=== PATIENT | male | born 1960 | race Two or more races ===

== ENCOUNTER 2025-01-09 06:54 | Outpatient (CLI) | payer OTHER ==
[~2025-01-09] VITALS: Ht 170.2 cm; Wt 113.4 kg
[2025-01-09] MEDS: REGADENOSON 0.4 MG/5 ML SYRG IV ONE ×2 (08:59)
--- NOTE | 2025-01-13 06:41 | DVHSR ---
APPROVED REPORT Exam: Nuclear Stress Test Indication: CHF BMI: 0 Stress Test Details Stress Test: Pharmacologic stress testing performed using 0.4 mg of regadenoson per 5 mL given IV over 10 seconds. HR Resting HR: 85 bpm Max Heart Rate (APMHR): 155.730680 bpm Max HR Achieved: 100 bpm Target HR (85% APMHR): 131.194002 bpm % of APMHR: 64.52 Recovery HR: 90 bpm BP Resting BP: 145/74 mmHg Recovery BP: 137/66 mmHg ECG Resting ECG: Sinus Rhythm Clinical Reason for Termination: Completed protocol Nurse Comments Recieved pt. from [facility]. A/Ox4 on RA. Connected to surveillance monitor, VS stable. PIV flushes well. Reviewed POC. Pt. verbalized understanding of procedure including risks and side effects, agrees for stress testing. Lexiscan stress test performed per protocol. [employer] administered Cardiolite. Pt. tolerated well. Pt. stable, no change on exam. VS returned to baseline. Transferred to [facility] via wheelchair w/ tech. Stress ECG Conclusion lvef 48% mild LV dysfunction inferior wall fsxed defect NM EXAM: Myocardial Perfusion REST/STRESS Imaging Protocol: Rest Tc-99m/Stress Tc-99m 1 day Resting Data Rest SPECT myocardial perfusion imaging was performed in supine position 45 minutes following the intravenous injection of 10.1 mCi of Tc-99m Sestamibi. Time of rest injection: 07:45 Date: 01/09/2025 Time of rest imagin:30 Date: 01/09/2025 Administration Route: IV Administration Site: Right Arm Pharmacologic Stress Pharmacologic stress test was performed by injecting Regadenoson 0.4 mg IV push followed by the intravenous injection of 30.2 mCi of Tc-99m Sestamibi. Time of stress injection: 09:02 Date: 01/09/2025 Time of stress imagin:02 Date: 01/09/2025 Administration Route: IV Administration Site: Right Arm Gated Stress SPECT was performed 60 minutes after stress injection. The images were gated to evaluate regional wall motion and calculate left ventricular ejection fraction. Stress only was performed in the Supine position. Nuclear Conclusion Nuclear Findings: negative for ischemia lvef 48% mild LV dysfunction inferior wall fsxed defect
== END 2025-01-09 17:00 | disposition home or self-care (01) ==
LOC: XYW 06:54
PROVIDERS: ATTEND Specialist
DX: I73.9 Peripheral vascular disease, unspecified (principal); I50.9 Heart failure, unspecified; J44.9 Chronic obstructive pulmonary disease, unspecified; I51.9 Heart disease, unspecified
CPT/HCPCS: 78452; 93017; A9500; J2785

== ENCOUNTER 2025-02-22 10:05 | Inpatient (IN) | payer OTHER, MEDICAID ==
[~2025-02-22] VITALS: Ht 170.2 cm; Wt 114.5 kg
[~2025-02-22 10:05] MED LIST: AMLO1TAB22 PO; ATOR20TA50 PO; CLON0.1T PO; DABI150C7 PO; DICL1GEL73 TOP; DOCU-94 PO; FAMO-12 PO; GAB100C PO; IPRA0.00 INH; LIDO1PAD55 TOP; [UNRECOGNIZED DRUG - CODE] PO
--- NOTE | 2025-02-22 11:17 | ED.PDOC ---
GI ASSESSMENT HPI Comments 64 y/o M, with PMHx of colon cancer presents to the ED for CC of abdominal pain. Patient states, he coughed x2days ago and now has a bulge to the left side of his abdomen. Patient reports, tenderness to the area upon palpation. Patient denies fever, chills, nausea, vomiting, diarrhea, constipation, or urinary symptoms. No other symptoms or modifying factors are present at this time. Chief Complaint: Abdominal Pain Time Seen by MD: 11:11 Reviewed Notes: Nurses Notes, Medications, Allergies Allergies: Coded Allergies: NO KNOWN ALLERGIES (Unverified , 01/09/25) Information Source: Patient Mode of Arrival: Ambulatory Timing: Days Duration: Since onset Prehospital treatment: None Vomitus: None Stool: Normal Severity: Moderate Recent: None Recent Hx of: None Pain Location: LUQ Modifying Factors: Nothing Associated sign and symptoms: Abdominal Pain Past Medical History PAST MEDICAL HISTORY: Cancer (COLON) Surgical History: Denies all surgeries Family History Family History: Unknown Social History Smoker: Non-Smoker Alcohol: Denies ETOH Use Drugs: Denies Drug Use Lives In: Home Constitutional: denies: chills, diaphoresis, fatigue, fever, malaise, sweats, weakness, others EENTM: denies: blurred vision, double vision, ear bleeding, ear discharge, ear drainage, ear pain, ear ringing, eye pain, eye redness, hearing loss, mouth pain, mouth swelling, nasal discharge, nose bleeding, nose congestion, nose pain, photophobia, tearing, throat pain, throat swelling, voice changes, others Respiratory: denies: cough, hemoptysis, orthopnea, SOB at rest, shortness of breath, SOB with excertion, stridor, wheezing, others Cardiovascular: denies: chest pain, dizzy spells, diaphoresis, Dyspnea on exertion, edema, irregular heart beat, left arm pain, lightheadedness, palpitations, PND, syncope, others Gastrointestinal: reports: abdominal pain; denies: abdomen distended, blood streaked bowels, constipated, diarrhea, dysphagia, difficulty swallowing, hematemesis, melena, nausea, poor appetite, poor fluid intake, rectal bleeding, rectal pain, vomiting, others Genitourinary: denies: burning, dysuria, flank pain, frequency, hematuria, incontinence, penile discharge, penile sore, pain, testicle pain, testicle swelling, urgency, others Neurological: denies: dizziness, fainting, headache, left sided numbness, left sided weakness, numbness, paresthesia, pre-existing deficit, right sided numbness, right sided weakness, seizure, speech problems, tingling, tremors, weakness, others Musculoskeletal: denies: back pain, gout, joint pain, joint swelling, muscle pain, muscle stiffness, neck pain, others Integumetry: denies: bruises, change in color, change in hair/nails, dryness, laceration, lesions, lumps, rash, wounds, others Allergic/Immunocompromised: denies: Difficulty Healing, Frequent Infections, Hives, Itching, others Hematologic/Lymphatic: denies: anemia, blood clots, easy bleeding, easy bruising, swollen glands, others Endocrine: denies: excessive hunger, excessive sweating, excessive thirst, excessive urination, flushing, intolerance to cold, intolerance to heat, unexplained weight gain, unexplained weight loss, others Psychiatric: denies: anxiety, bipolar disorder, depression, hopeless, panic disorder, schizophrenia, sleepless, suicidal, others All Other Systems: Reviewed and Negative Physical Exam General Appearance: No Apparent Distress, Normal HEENT: Normal ENT Inspection, Pharynx Normal Neck: Full Range of Motion, Non-Tender, Normal, Normal Inspection Respiratory: Chest Non-Tender, Lungs Clear, No Accessory Muscle Use, No Respira tory Distress, Normal Breath Sounds Cardiovascular: No Edema, No Murmur, No Gallop, Normal Peripheral Pulses, Regular Rate/Rhythm Breast Exam: Deferred Gastrointestinal: LUQ, No Organomegaly, No Pulsatile Mass, Normal Bowel Sounds, Soft, Tenderness (TTP), Other (HERNIA TO LEFT UPPER QUADRANTE ) Genitalia: Deferred Pelvic: Deferred Rectal: Deferred Extremities: No calf tenderness, Normal capillary refill, Normal inspection, Normal range of motion, Non-tender, No pedal edema Musculoskeletal : Apperance: Normal Neurologic: Alert, finish filer II-XII nml as Tested, No Motor Deficits, Normal Affect, Normal Mood, No Sensory Deficits Cerebellar Function: Normal Reflexes: Normal Skin: Dry, Normal Color, Warm Lymphatic: No Adenopathy Was a procedure done? Was a procedure done?: No GI differential Dx Differential Diagnosis: Hernia X-Ray, Labs, Meds, VS Vital Signs Date Time Temp Pulse Resp B/P (MAP) Pulse Ox O2 Delivery O2 Flow Rate FiO2 02/22/25 10:58 65 18 95 Nasal Cannula 3.0 02/22/25 10:58 98.2 68 18 144/76 (98) 95 98.2 02/22/25 10:08 97.4 92 16 177/79 94 97.4 Lab Test 02/22/25 11:30 Range/Units White Blood Count 4.4 4.4-10.8 10^3/uL Red Blood Count 4.54 4.5-5.90 10^6/uL Hemoglobin 13.9 13.5-17.5 g/dL Hematocrit 40.0 L 41.0-53.0 % Mean Corpuscular Volume 88.1 80.0-100.0 fL Mean Corpuscular Hemoglobin 30.5 28.0-32.0 pg Mean Corpuscular Hemoglobin Concent 34.7 32.0-36.0 g/dL Red Cell Distribution Width 15.7 H 11.8-14.3 % Platelet Count 123 L 140-450 10^3/uL Mean Platelet Volume 7.2 6.9-10.8 fL Neutrophils (%) (Auto) 69.0 37.0-80.0 % Lymphocytes (%) (Auto) 21.9 10.0-50.0 % Monocytes (%) (Auto) 7.9 0.0-12.0 % Eosinophils (%) (Auto) 0.8 0.0-7.0 % Basophils (%) (Auto) 0.4 0.0-2.0 % Neutrophils # (Auto) 3.0 1.6-8.6 10 ^3/uL Lymphocytes # (Auto) 1.0 0.4-5.4 10 ^3/uL Monocytes # (Auto) 0.3 0-1.3 10 ^3/uL Eosinophils # (Auto) 0 0-0.8 10 ^3/uL Basophils # (Auto) 0 0-0.2 10 ^3/uL Nucleated Red Blood Cells 0.1 % Sodium Level 145 136-145 mmol/L Potassium Level 4.0 3.5-5.1 mmol/L Chloride Level 105 98-107 mmol/L Carbon Dioxide Level 32 H 20-31 mmol/L Anion Gap 8 5-15 Blood Urea Nitrogen 13 9-23 mg/dL Creatinine 0.98 0.700-1.30 mg/dL Glomerular Filtration Rate Calc 86 >90 mL/min BUN/Creatinine Ratio 13.3 10.0-20.0 Serum Glucose 105 74-106 mg/dL Calcium Level 9.3 8.7-10.4 mg/dL Time of 1ST Reevaluation: 11:41 Reevaluation 1ST: Unchanged Patient Education/Counseling: Diagnosis, Treatment Family Education/Counseling: No Family Present SEPSIS Sepsis Screen Date sepsis recognized/suspect: Feb 22, 2025 Time Sepsis recognized/suspect: 101 Recent Procedure: No On Antibiotic Therapy: No Respiratory Rate >20: No Heart Rate >90: Yes Temp<36 C (96.8 F) or >38.3 C: No SBP <90 or MAP <65 mmHG: No New Acute Mental Status Change: No Is the patient on CPAP, BIPAP,: No Physician Orders Ct Ab Pel With Iv Con Only (02/22/25 10:47) Vital Signs Date Time Temp Pulse Resp B/P (MAP) Pulse Ox O2 Delivery O2 Flow Rate FiO2 02/22/25 10:58 65 18 95 Nasal Cannula 3.0 02/22/25 10:58 98.2 68 18 144/76 (98) 95 98.2 02/22/25 10:08 97.4 92 16 177/79 94 97.4 Laboratory Tests Test 02/22/25 11:30 White Blood Count 4.4 10^3/uL (4.4-10.8) Departure 1 Departure Time of Disposition: 13:59 (Patient presented with abdominal pain that was concerning for possible appendicits, gastritis, cholecystitis, colitis, gastroenteritis, sbo, or orther possible surgical emergency. Data: 1. I ordered and reviewed the result of at least 3 labs including a CBC, BMP, and Urinalysis. 2. I independently interpreted the following tests: CT Abdomen and Pelvis is concerning for very new spigelian hernia as well as chronic vascular insufficiency .Risk:This patient has a high risk of morbidity due to further diagnostic testing or treatment and may suffer from an acute abdominal process disorder. Workup reveals new spigelian hernia and intractable abdominal pain and patient should be admitted for further workup. and possible expert consultation. ) Impression: Primary Impression: Intractable abdominal pain Additional Impressions: Spigelian hernia Chronic vascular insufficiency Disposition: ADMITTED INPATIENT Admit to: Med Surg Condition: Guarded Critical Care Note Critical Care Time?: No Stability Stability form required: No Heart Score Heart Score: Heart Score Response (Comments) Value History N/A 0 EKG N/A 0 Age N/A 0 Risk Factors N/A 0 Troponin N/A 0 Total 0 I personally scribed for MOSHE BREWER MD ([email or web address]) on 02/22/25 at 11:17. Electronically submitted by Mary Campbell ([email or web address]). MOSHE BREWER MD Feb 22, 2025 11:17
[2025-02-22 11:45] LABS: Hematocrit 40.0 % (41.0-53.0); Hemoglobin 13.9 g/dL (13.5-17.5); Mean Corpuscular Hemoglobin 30.5 pg (28.0-32.0); Mean Corpuscular Volume 88.1 fL (80.0-100.0); Nucleated Red Blood Cells % 0.1 %
[2025-02-22 11:57] LABS: Chloride 105 mmol/L (98-107); Potassium 4.0 mmol/L (3.5-5.1); Sodium 145 mmol/L (136-145)
[2025-02-22 11:58] LABS: Anion Gap 8 (5-15)
[2025-02-22 11:59] LABS: Calcium 9.3 mg/dL (8.7-10.4)
[2025-02-22 12:01] LABS: Carbon Dioxide 32 mmol/L (20-31)
[2025-02-22 12:03] LABS: Glucose 105 mg/dL (74-106)
[2025-02-22 12:04] LABS: BUN/Creatinine Ratio 13.3 (10.0-20.0); Blood Urea Nitrogen 13 mg/dL (9-23)
[2025-02-22] MEDS: IOHEXOL 300 MG/ML 100ML BOTTLE IJ ONE (12:22)
--- NOTE | 2025-02-22 13:09 | DVH ---
EXAM: CT CT AB PEL WITH IV CON ONLY History: abdominal pain, new hernia, hx of colon cancer COMPARISON: None TECHNIQUE: Multidetector spiral CT of the abdomen and pelvis was performed from lung bases to pubic symphysis. Intravenous contrast was administered during this examination. Portal venous imaging was obtained. Axial, coronal and sagittal multiplanar reformats were performed by the technologist on a separate workstation. Radiation Dose : 1. Abdomen/Pelvis: CTDIvol 23.4 mGy, DLP 1393 mGy*cm. CONTRAST: Type of contrast: Omnipaque Contrast injected: 100 ml FINDINGS: Lung Bases: No acute or significant lung base finding. Normal heart size. No pleural or pericardial effusion. Liver: The liver is normal in size. No focal lesions. Normal hepatic vascular enhancement. Gallbladder and Biliary Tree: Unremarkable Spleen: Splenomegaly measuring up to 14.3 cm. Pancreas: The pancreas is normal in appearance without focal lesions or abnormal enhancement. Adrenal Glands: Unremarkable Kidneys: Left renal nephrolithiasis without hydronephrosis. Bladder: Unremarkable Bowel: The stomach is grossly normal in appearance. Small bowel and colon are normal in caliber and distribution. The appendix is not visualized; however, no secondary findings of acute appendicitis identified. Ascites: Absent Lymphadenopathy: No mesenteric, retroperitoneal or periportal lymphadenopathy. Abdominal Wall and Mesentery: Left spigelian hernia is seen which contains fat and a nonobstructed segment of bowel. Vasculature: The infrarenal abdominal aorta is occluded. The bilateral iliac arteries are also occluded. Fem-fem bypass graft is noted. There is also a left axillary femoral bypass graft. The right SFA is possibly occluded. Pelvic Organs: Unremarkable Musculoskeletal: No aggressive focal bony lesions, acute fractures or dislocation. IMPRESSION: 1. Left spigelian hernia containing a nonobstructed segment of bowel. 2. 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 3. Occluded right SFA. 4. Fem-fem bypass graft and left axillary femoral bypass graft are noted. 5. Splenomegaly. 6. Left renal nephrolithiasis without hydronephrosis. Radiation optimization: All CT scans at this facility use at least one of these dose optimization techniques: automated exposure control mA and/or kV adjustment per patient size (includes targeted exams where dose is matched to clinical indication) or iterative reconstruction.
[2025-02-22] MEDS ORDERED: MORPHINE SULFATE INJ 2 MG/ml SYRG IV PRN (19:45)
[2025-02-22] MEDS ORDERED: ONDANSETRON HCL 4 MG/2 ML VIAL IV PRN (19:45)
[2025-02-22] MEDS ORDERED: hydrALAZINE HCL 20 MG/ML VL IV PRN (19:45)
[2025-02-22 20:25] LABS: INR 1.03 (0.9-1.15); Partial Thromboplastin Time 21.4 SEC (24.5-34.5); Prothrombin Time 10.9 sec (9.3-11.8)
--- NOTE | 2025-02-22 22:01 | DVHHP2 ---
History of Present Illness Reason for Visit: Abdominal pain History of Present Illness 64-year-old male presents for evaluation of abdominal pain. Patient endorses a two day history of developing a bulge on his left upper abdomen. Reports tenderness upon touch. No nausea or vomiting. Past Medical History COPD, hypertension,chf, colon cancer Past Surgical History Tumor resection, fem-fem bypass graft Family History Noncontributory Smoke: No ALCOHOL: none Drugs: None Lives: with Family Review of Systems Review of Systems Review of systems are currently negative otherwise addressed in HPI. Allergies: Coded Allergies: NO KNOWN ALLERGIES (Unverified , 01/09/25) Medications Current Medications Medications Dose Ordered Sig/Nikki Route Start Time Stop Time Status Last Admin Dose Admin Hydralazine HCl 10 mg Q6HP PRN IV 02/22/25 19:45 Ondansetron HCl 4 mg Q4HP PRN IV 02/22/25 19:45 Morphine Sulfate 2 mg Q4HPRN PRN IV 02/22/25 19:45 Pantoprazole Sodium 40 mg DAILY IV 02/23/25 10:00 Exam Vital Signs Vital Signs Date Time Temp Pulse Resp B/P (MAP) Pulse Ox O2 Delivery O2 Flow Rate FiO2 02/22/25 19:20 97.8 80 22 159/90 (113) 98 97.8 02/22/25 10:58 Nasal Cannula 3.0 Exam Gen: 64-year-old male in mild distress, morbidly obese Skin: Warm, dry, normal color and texture, no rash. HEENT: Normocephalic atraumatic, mucous membranes moist and pink. Neck: Cervical and supraclavicular nodes normal without enlargement, trachea is midline, thyroid gland is normal without masses. Pulmonary: Clear to auscultation and percussion bilaterally. Cardiac: Regular rate and rhythm. No murmur Abdomen: Soft, left upper abdomen lump with tenderness on touch, nondistended, bowel sounds present all 4 quadrants, no guarding, no rigidity, no organomegaly. Extremities: No cyanosis, clubbing, no edema Neuro: Cranial nerves II through XII grossly intact, normal affect and speech, no focal motor deficits. Labs/Xrays ORDERING PHYSICIAN: MOSHE BREWER MD PROCEDURE(s): ABPLIV - CT AB PEL WITH IV CON ONLY REASON: abdominal pain, new hernia, hx of colon cancer ORDER NUMBER(s): [id number], ACCESSION NUMBER(s): [id number] EXAM: CT CT AB PEL WITH IV CON ONLY History: abdominal pain, new hernia, hx of colon cancer COMPARISON: None TECHNIQUE: Multidetector spiral CT of the abdomen and pelvis was performed from lung bases to pubic symphysis. Intravenous contrast was administered during t his examination. Portal venous imaging was obtained. Axial, coronal and sagittal multiplanar reformats were performed by the technologist on a separate workstation. Radiation Dose : 1. Abdomen/Pelvis: CTDIvol 23.4 mGy, DLP 1393 mGy*cm. CONTRAST: Type of contrast: Omnipaque Contrast injected: 100 ml FINDINGS: Lung Bases: No acute or significant lung base finding. Normal heart size. No pleural or pericardial effusion. Liver: The liver is normal in size. No focal lesions. Normal hepatic vascular enhancement. Gallbladder and Biliary Tree: Unremarkable Spleen: Splenomegaly measuring up to 14.3 cm. Pancreas: The pancreas is normal in appearance without focal lesions or abnormal enhancement. Adrenal Glands: Unremarkable Kidneys: Left renal nephrolithiasis without hydronephrosis. Bladder: Unremarkable Bowel: The stomach is grossly normal in appearance. Small bowel and colon are normal in caliber and distribution. The appendix is not visualized; however, no secondary findings of acute appendicitis identified. Ascites: Absent Lymphadenopathy: No mesenteric, retroperitoneal or periportal lymphadenopathy. Abdominal Wall and Mesentery: Left spigelian hernia is seen which contains fat and a nonobstructed segment of bowel. Vasculature: The infrarenal abdominal aorta is occluded. The bilateral iliac arteries are also occluded. Fem-fem bypass graft is noted. There is also a left axillary femoral bypass graft. The right SFA is possibly occluded. Pelvic Organs: Unremarkable Musculoskeletal: No aggressive focal bony lesions, acute fractures or dislocation. IMPRESSION: 1. Left spigelian hernia containing a nonobstructed segment of bowel. 2. 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 3. Occluded right SFA. 4. Fem-fem bypass graft and left axillary femoral bypass graft are noted. 5. Splenomegaly. 6. Left renal nephrolithiasis without hydronephrosis. Radiation optimization: All CT scans at this facility use at least one of these dose optimization techniques: automated exposure control mA and/or kV adjustment per patient size (includes targeted exams where dose is matched to clinical indication) or iterative reconstruction. Labs Test 02/22/25 19:58 02/22/25 11:30 Range/Units Prothrombin Time 10.9 9.3-11.8 sec Prothrombin Time INR 1.03 0.9-1.15 Activated Partial Thromboplast Time 21.4 L 24.5-34.5 SEC White Blood Count 4.4 4.4-10.8 10^3/uL Red Blood Count 4.54 4.5-5.90 10^6/uL Hemoglobin 13.9 13.5-17.5 g/dL Hematocrit 40.0 L 41.0-53.0 % Mean Corpuscular Volume 88.1 80.0-100.0 fL Mean Corpuscular Hemoglobin 30.5 28.0-32.0 pg Mean Corpuscular Hemoglobin Concent 34.7 32.0-36.0 g/dL Red Cell Distribution Width 15.7 H 11.8-14.3 % Platelet Count 123 L 140-450 10^3/uL Mean Platelet Volume 7.2 6.9-10.8 fL Neutrophils (%) (Auto) 69.0 37.0-80.0 % Lymphocytes (%) (Auto) 21.9 10.0-50.0 % Monocytes (%) (Auto) 7.9 0.0-12.0 % Eosinophils (%) (Auto) 0.8 0.0-7.0 % Basophils (%) (Auto) 0.4 0.0-2.0 % Neutrophils # (Auto) 3.0 1.6-8.6 10 ^3/uL Lymphocytes # (Auto) 1.0 0.4-5.4 10 ^3/uL Monocytes # (Auto) 0.3 0-1.3 10 ^3/uL Eosinophils # (Auto) 0 0-0.8 10 ^3/uL Basophils # (Auto) 0 0-0.2 10 ^3/uL Nucleated Red Blood Cells 0.1 % Sodium Level 145 136-145 mmol/L Potassium Level 4.0 3.5-5.1 mmol/L Chloride Level 105 98-107 mmol/L Carbon Dioxide Level 32 H 20-31 mmol/L Anion Gap 8 5-15 Blood Urea Nitrogen 13 9-23 mg/dL Creatinine 0.98 0.700-1.30 mg/dL Glomerular Filtration Rate Calc 86 >90 mL/min BUN/Creatinine Ratio 13.3 10.0-20.0 Serum Glucose 105 74-106 mg/dL Calcium Level 9.3 8.7-10.4 mg/dL SEPSIS Sepsis Screen Date sepsis recognized/suspect: Feb 22, 2025 Time Sepsis recognized/suspect: 1011 Recent Procedure: No On Antibiotic Therapy: No Respiratory Rate >20: No Heart Rate >90: Yes Temp<36 C (96.8 F) or >38.3 C: No SBP <90 or MAP <65 mmHG: No New Acute Mental Status Change: No Is the patient on CPAP, BIPAP,: No Physician Orders * Surgical Consult (02/22/25 ) Hydralazine Injection (Apresoline Inject (02/22/25 19:45) Basic Metabolic Panel (02/23/25 04:00) Sodium Chloride 0.9% (02/22/25 19:45) Admit (02/22/25 19:31) Ondansetron Hcl (Zofran) (02/22/25 19:45) Complete Blood Count (02/23/25 04:00) Npo (Nothing By Mouth) Diet (02/23/25 Breakfast) Condition: Stable (02/22/25 19:31) Bedrest With Bathroom Privileg (02/22/25 19:31) Morphine Sulfate Injection (02/22/25 19:45) Pantoprazole (Protonix) (02/23/25 10:00) Albuterol Medneb (Ventolin Medneb) (02/22/25 22:00) Hydralazine Injection (Apresoline Inject (02/22/25 22:00) Chest Xray 1 View (02/23/25 04:00) Vital Signs Date Time Temp Pulse Resp B/P (MAP) Pulse Ox O2 Delivery O2 Flow Rate FiO2 02/22/25 19:20 97.8 80 22 159/90 (113) 98 97.8 02/22/25 14:39 97.6 77 16 120/78 (92) 93 97.6 Laboratory Tests Test 02/22/25 11:30 White Blood Count 4.4 10^3/uL (4.4-10.8) Assessment/Plan Assessment/Plan Assessment Acute abdominal pain ? Spigelian hernia Hypertension COPD Morbid obesity Plan Admit the patient to Med surge to the hospitalist Josh leggett NPO Surgical consult Pain management Continue treatment per orders. Plan discussed with: Patient My Orders Orders - JAMI REZA Procedure Category Date Status Time * Surgical Consult CONS 02/22/25 Transmitted Hydralazine Injection PHA 02/22/25 In Process (Apresoline Inject 19:45 Basic Metabolic Panel LAB 02/23/25 Verified 04:00 Sodium Chloride 0.9% PHA 02/22/25 In Process 19:45 Admit ADMIT 02/22/25 Transmitted 19:31 Ondansetron Hcl PHA 02/22/25 In Process (Zofran) 19:45 Complete Blood Count LAB 02/23/25 Verified 04:00 Npo (Nothing By DIET 02/23/25 Transmitted Mouth) Diet Breakfast Condition: Stable JOSE 02/22/25 In Process 19:31 Bedrest With Bathroom JOSE 02/22/25 In Process Privileg 19:31 Morphine Sulfate PHA 02/22/25 In Process Injection 19:45 Pantoprazole PHA 02/23/25 In Process (Protonix) 10:00 Albuterol Medneb PHA 02/22/25 Transmitted (Ventolin Medneb) 22:00 Hydralazine Injection PHA 02/22/25 Transmitted (Apresoline Inject 22:00 Chest Xray 1 View XY 02/23/25 Transmitted 04:00 Date of Service: Feb 22, 2025 Billing Provider: JAMI REZA Common Visit Codes: [id number] INP/OBS CARE (MOD) JAMI REZA Feb 22, 2025 22:01
[2025-02-22 23:11] VITALS: PULSE 77; RESP 18; O2SAT 100
[2025-02-22] MEDS: ALBUTEROL SULF 2.5 MG/0.5ML(0.5%) NEB SOLN NEB PRN (23:11)
[2025-02-22 23:17] VITALS: PULSE 78; RESP 18; O2SAT 100
[2025-02-22 23:30] VITALS: BP 159/90; PULSE 77; RESP 18; TEMP 97.8; O2SAT 100
[2025-02-23] VITALS (14 sets, daily range): BP systolic 144–159; BP diastolic 78–88; PULSE 77–98; RESP 18–20; TEMP 97.6–99.7; O2SAT 96–100
[2025-02-23] MEDS: SODIUM CHLORIDE 0.9% 1,000 ML IV ONE (02:38)
--- NOTE | 2025-02-23 05:44 | DVH ---
CHEST RADIOGRAPH Indication: sob Technique: Single frontal view of the chest was obtained COMPARISON: None FINDINGS: Lines and Tubes: Right central venous catheter in satisfactory position. Lungs: Increased interstital prominence. This may represent pulmonary vascular congestion and/or viral pneumonia. Pleura: No effusion. No pneumothorax. Cardiomediastinal contours: Cardiomegaly. Bones: Unremarkable IMPRESSION: Increased pulmonary vascular congestion and/or viral pneumonia.
[2025-02-23 09:17] LABS: Chloride 104 mmol/L (98-107); Potassium 3.9 mmol/L (3.5-5.1); Sodium 144 mmol/L (136-145)
[2025-02-23 09:18] LABS: Anion Gap 9 (5-15); Carbon Dioxide 31 mmol/L (20-31)
[2025-02-23 09:19] LABS: Calcium 9.0 mg/dL (8.7-10.4)
[2025-02-23 09:23] LABS: Glucose 101 mg/dL (74-106)
[2025-02-23 09:24] LABS: BUN/Creatinine Ratio 8.3 (10.0-20.0)
[2025-02-23 09:26] LABS: Hematocrit 41.4 % (41.0-53.0); Hemoglobin 14.2 g/dL (13.5-17.5); Mean Corpuscular Hemoglobin 30.2 pg (28.0-32.0); Mean Corpuscular Volume 88.1 fL (80.0-100.0); Nucleated Red Blood Cells % 0.4 %
[2025-02-23 09:27] LABS: Blood Urea Nitrogen 8 mg/dL (9-23)
[2025-02-23] MEDS: PANTOPRAZOLE 40 MG/10 ML VIAL INJ IV SCH (09:35)
[2025-02-23] MEDS: MORPHINE SULFATE 4 MG/ML SYR/VIAL IV PRN (10:35)
--- NOTE | 2025-02-23 15:05 | DVHPNRES ---
Progress Note Date Seen: Feb 23, 2025 Resident Creating Document: DENAE TORRES RESIDENT Medical Necessity Reason Pt with a Central, PICC or Fol: No Subjective Review of Systems Mr. Jeffrey Dangelo is a 64 year old male with PMHx of Stage 3 Colon Cancer s/p resection and chemotherapy in 2023, CHF, and COPD on home oxygen, who presented to the ED with chief complaint of left sided abdominal pain. Refers that two days prior he had sudden onset of left sided abdominal and bulge formation after coughing. Describes pain as burning sensation, non-radiating, 7/10 intensity, with no aggravating or relieving factors. He denies fever, nausea, vomiting, palpitations, constipation, or inability to pass gas. Refers he has been able to defecate since onset of symptoms without difficulty. Due to persistence of pain he presented to the ED. On evaluation in the ED, he was afebrile, normocardic, MAP trending toward hypertension, and saturating adequately at 3 L NC O2 (his home regimen). Initial labs are significant for thrombocytopenia. Abdominal/Pelvis CT shows left spigelian hernia containing a non-obstructed segment of bowel. The patient was admitted for further work and monitoring. He was placed on NPO, IV pain regimen, and surgical consult was placed. 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 He is alert and AOx4. He complains of some burning left sided abdominal pain. He is afebrile, normocardic, tends toward hypertension, and saturating adequately on 3L NC. CBC is stable, lactic acid is within normal range. He is pending evaluation by general surgery. He will remain NPO until he is seen by surgery. Review of Systems: Constitutional: Denies weight loss, fever and chills. HEENT: Denies changes in vision and hearing. Respiratory: Denies shortness of breath and cough Cardiovascular: Denies chest discomfort or palpitations GI: Refers burning abdominal pain, denies abdominal distention, diarrhea, nausea, vomiting, constipation : Denies dysuria and urinary frequency. Musculoskeletal: Denies symptoms Skin: Denies rash and pruritus. Neurological: denies dizziness headache vision or hearing problems Objective vital signs Vital Sign Date Time Temp Pulse Resp B/P (MAP) Pulse Ox O2 Delivery O2 Flow Rate FiO2 02/23/25 12:38 97.6 85 20 144/88 (106) 99 97.6 02/23/25 12:26 Nasal Cannula* 3 32 Total Intake and Output 02/22/25 02/22/25 02/23/25 15:00 23:00 07:00 Intake Total 1000 ml Balance 1000 ml medications Current Medications Medications Dose Ordered Sig/Nikki Route Start Time Stop Time Status Last Admin Dose Admin Hydralazine HCl 10 mg Q6HP PRN IV 02/22/25 19:45 Ondansetron HCl 4 mg Q4HP PRN IV 02/22/25 19:45 Pantoprazole Sodium 40 mg DAILY IV 02/23/25 10:00 02/23/25 09:35 40 MG Albuterol 2.5 mg Q6HPRN PRN NEB 02/22/25 22:00 02/22/25 23:11 2.5 MG Hydralazine HCl 10 mg Q6HP PRN IV 02/22/25 22:00 Morphine Sulfate 2 mg Q4HPRN PRN IV 02/23/25 09:45 02/23/25 10:35 2 MG Examination General: The patient alert and oriented in person place and time. Patient following commands HEENT: Normocephalic, atraumatic, normal reactive pupils, EOM intact, pink conjunctiva, pink moist mucous membrane Respiratory/pulmonary: Bilateral chest expansion, presence of chest port in right pectoral region, no pain on palpation of chest wall, clear lungs bilaterally, vesicular murmurs present in almost all lung fischer, no associated crackles or wheezes. Cardiovascular: Normal RRR, normal S1 and S2, no murmurs Abdomen: Obese, abdomen nondistended, 6 cm horizontal hypochromic scar is observed in upper portion of left lower quadrant, mild bulging is noted under aforementioned scar, normal bowel sounds, soft, mild pain on palpation of the upper portion of left lower quadrant, no palpable masses. Extremities: No deformities, there is no peripheral edema present at the lower extremities, normal pulses Skin: No rashes, rest as above Neurological: Intact cranial nerves with no focal neurologic deficits laboratory and microbiology Laboratory Tests 02/23/25 08:19 Test 02/23/25 08:19 Range/Units Serum Glucose 101 74-106 mg/dL Problem List/Assessment/Plan Problem List/Assessment/Plan Assessment and Plan: Acute intractable abdominal pain likely due to Spigelian Hernia - Abdominal/Pelvic CT: Left Spigelian hernia containing nonobstructed segment of bowel - NPO - Pending surgical evaluation - morphine 2 mg IV q.4 hours PRN - NS 60 cc/hr maintenance - Protonix 40 mg IV daily Hypertension - Hydralazine 10 mg IV PRN - Resume amlodipine 5 mg and clonidine 0.1 mg once NPO is lifted Congestive Heart Failure - Resume furosemide once NPO is lifted COPD, not in exacerbation - Supplemental O2 3L NC 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 He states he understands and agrees. FULL CODE. Plan discussed with: Patient, Other (Nurse (Pollo)) My Orders My Orders Orders - DENAE TORRES RESIDENT Procedure Category Date Status Time Drug Screen LAB 02/23/25 Logged 08:23 Urinalysis LAB 02/23/25 Logged 08:23 Visit Coding STANDARD RES Billing Provider: SURI WEBBER MD Date of Service if different f: Feb 23, 2025 Common Visit Codes: 86216-[id number] INP/OBS CARE(MOD) DENAE TORRES RESIDENT Feb 23, 2025 15:05
[2025-02-23] MEDS: ENOXAPARIN SOD 40 MG/0.4 ML SYRINGE SC ONE (15:34)
[2025-02-23 15:45] LABS: Urine Protein, UAD Negative (Negative)
[2025-02-23 15:56] LABS: Opiate Scree,Urine Pos (NEGATIVE)
[2025-02-23 15:57] LABS: Amphetamine Screen, Urine Neg (NEGATIVE); Barbiturate Scree,Urine Neg (NEGATIVE); Benzodiazephine Screen, Urine Neg (NEGATIVE); Cannabinoid Screen, Urine Pos (NEGATIVE); Cocaine Screen, Urine Neg (NEGATIVE); Phencyclidine Screen, Urine Neg (NEGATIVE)
[2025-02-23] MEDS: SODIUM CHLORIDE 0.9% 1,000 ML IV SCH (17:50)
[2025-02-23] MEDS: hydrALAZINE HCL 20 MG/ML VL IV PRN (18:41)
[2025-02-24 01:00] VITALS: BP 139/81; PULSE 89; RESP 21; TEMP 97.7; O2SAT 99
[2025-02-24 05:00] VITALS: BP 152/84; PULSE 89; RESP 20; TEMP 98.1; O2SAT 97
[2025-02-24 06:05] LABS: Hematocrit 40.1 % (41.0-53.0); Hemoglobin 13.8 g/dL (13.5-17.5); Mean Corpuscular Hemoglobin 30.2 pg (28.0-32.0); Mean Corpuscular Volume 87.9 fL (80.0-100.0); Nucleated Red Blood Cells % 0.8 %
[2025-02-24 06:15] LABS: Alanine Aminotransferase 21 U/L (7-40); Albumin 4.0 g/dL (3.2-4.8); Alkaline Phosphatase 98 U/L (46-116); Anion Gap 10 (5-15); BUN/Creatinine Ratio 7.0 (10.0-20.0); Bilirubin, Total 1.2 mg/dL (0.2-1.0); Calcium 9.1 mg/dL (8.7-10.4); Carbon Dioxide 28 mmol/L (20-31); Chloride 104 mmol/L (98-107); Glucose 99 mg/dL (74-106); Potassium 3.6 mmol/L (3.5-5.1); Sodium 142 mmol/L (136-145); Total Protein 7.0 g/dL (5.7-8.2)
[2025-02-24 06:17] LABS: Blood Urea Nitrogen 6 mg/dL (9-23)
[2025-02-24] MEDS ORDERED: ENOXAPARIN SOD 40 MG/0.4 ML SYRINGE SC SCH (10:00)
--- NOTE | 2025-02-24 15:37 | DVHDSRES ---
Discharge Summary Date of Admission Resident Creating Document: DENAE TORRES RESIDENT Feb 22, 2025 at 19:31 Date of Discharge: Feb 24, 2025 Admitting Diagnosis Intractable abdominal pain Wounds: No wounds Labs/Diagnostic Data: Laboratory Results Test 02/24/25 04:58 02/23/25 13:36 02/23/25 12:00 02/23/25 08:19 White Blood Count 4.1 10^3/uL (4.4-10.8) Red Blood Count 4.55 10^6/uL (4.5-5.90) Hemoglobin 13.8 g/dL (13.5-17.5) Hematocrit 40.1 % (41.0-53.0) Mean Corpuscular Volume 87.9 fL (80.0-100.0) Mean Corpuscular Hemoglobin 30.2 pg (28.0-32.0) Mean Corpuscular Hemoglobin Concent 34.4 g/dL (32.0-36.0) Red Cell Distribution Width 16.0 % (11.8-14.3) Platelet Count 134 10^3/uL (140-450) Mean Platelet Volume 7.6 fL (6.9-10.8) Neutrophils (%) (Auto) 60.3 % (37.0-80.0) Lymphocytes (%) (Auto) 26.6 % (10.0-50.0) Monocytes (%) (Auto) 11.4 % (0.0-12.0) Eosinophils (%) (Auto) 1.2 % (0.0-7.0) Basophils (%) (Auto) 0.5 % (0.0-2.0) Neutrophils # (Auto) 2.5 10 ^3/uL (1.6-8.6) Lymphocytes # (Auto) 1.1 10 ^3/uL (0.4-5.4) Monocytes # (Auto) 0.5 10 ^3/uL (0-1.3) Eosinophils # (Auto) 0 10 ^3/uL (0-0.8) Basophils # (Auto) 0 10 ^3/uL (0-0.2) Nucleated Red Blood Cells 0.8 % Sodium Level 142 mmol/L (136-145) Potassium Level 3.6 mmol/L (3.5-5.1) Chloride Level 104 mmol/L (98-107) Carbon Dioxide Level 28 mmol/L (20-31) Anion Gap 10 (5-15) Blood Urea Nitrogen 6 mg/dL (9-23) Creatinine 0.86 mg/dL (0.700-1.30) Glomerular Filtration Rate Calc 96 mL/min (>90) BUN/Creatinine Ratio 7.0 (10.0-20.0) Serum Glucose 99 mg/dL (74-106) Calcium Level 9.1 mg/dL (8.7-10.4) Total Bilirubin 1.2 mg/dL (0.2-1.0) Aspartate Amino Transferase (AST) 28 U/L (13-40) Alanine Aminotransferase (ALT) 21 U/L (7-40) Alkaline Phosphatase 98 U/L (46-116) Total Protein 7.0 g/dL (5.7-8.2) Albumin 4.0 g/dL (3.2-4.8) Lactic Acid Level 1.5 mmol/L (0.4-2.0) Urine Color Yellow (Yellow) Urine Clarity Clear (Clear) Urine pH 6.5 (5.0-9.0) Urine Specific [place] 1.019 (1.001-1.035) Urine Protein Negative (Negative) Urine Ketones 1+ (Negative) Urine Blood 3+ /uL (Negative) Urine Nitrite Negative (Negative) Urine Bilirubin Negative (Negative) Urine Urobilinogen 2 mg/dL (Negative) Urine Leukocyte Esterase Negative /uL (Negative) Urine RBC 154 /hpf (0 - 3) Urine Microscopic WBC 1 /HPF (0-3) Urine Squamous Epithelial Cells None seen /hpf (<5) Urine Bacteria None seen /hpf (None Seen) Urine Mucus Few (None Seen) Urine Glucose Normal mg/dL (Normal) Urine Opiates Screen Pos (NEGATIVE) Urine Fentanyl Screen Neg (NEGATIVE) Urine Barbiturates Screen Neg (NEGATIVE) Urine Phencyclidine Screen Neg (NEGATIVE) Urine Amphetamines Screen Neg (NEGATIVE) Urine Benzodiazepines Screen Neg (NEGATIVE) Urine Cocaine Screen Neg (NEGATIVE) Urine Cannabinoids Screen Pos (NEGATIVE) Hemoglobin A1c 4.9 % A1C (<5.7) Lipase 29 U/L (12-53) Thyroid Stimulating Hormone (TSH) 2.68 uIU/mL (0.55-4.78) Test 02/22/25 19:58 Prothrombin Time 10.9 sec (9.3-11.8) Prothrombin Time INR 1.03 (0.9-1.15) Activated Partial Thromboplast Time 21.4 SEC (24.5-34.5) Other Laboratory Tests 02/24/25 04:58 Brief Hx & Hospital Course: Mr. Jeffrey Dangelo is a 64 year old male with PMHx of Stage 3 Colon Cancer s/p resection and chemotherapy in 2023, CHF, and COPD on home oxygen, who presented to the ED with chief complaint of left sided abdominal pain. Refers that two days prior he had sudden onset of left sided abdominal and bulge formation after coughing. Describes pain as burning sensation, non-radiating, 7/10 intensity, with no aggravating or relieving factors. He denies fever, nausea, vomiting, palpitations, constipation, or inability to pass gas. Refers he has been able to defecate since onset of symptoms without difficulty. Due to persistence of pain he presented to the ED. On evaluation in the ED, he was afebrile, normocardic, MAP trending toward hypertension, and saturating adequately at 3 L NC O2 (his home regimen). Initial labs are significant for thrombocytopenia. Abdominal/Pelvis CT shows left spigelian hernia containing a non-obstructed segment of bowel. The patient was admitted for further work and monitoring. He was placed on NPO, IV pain regimen, and surgical consult was placed. follow up labs remained stable, lactic acid was within normal range. On evaluation today, the patient stated he wished to leave AMA To be seen by his primary care physician. The patient was counseled on the importance of staying for completion of workup and evaluation by General surgery. He was informed of the risks of leaving of leaving without surgical evaluation and potential treatment. Patient verbalized understanding of risks. I counseled the patient on red flag symptoms to be on the look out for and encouraged him to return to the ER should any symptoms present, do not improve, or worsen. The patient states he understands, he signed his A paperwork and subsequently left. Case discussed with Dr. Webber Consults/Reason for consult General surgery was consulted due to spigelian hernia Operations or Procedures EXAM: CT CT AB PEL WITH IV CON ONLY History: abdominal pain, new hernia, hx of colon cancer COMPARISON: None TECHNIQUE: Multidetector spiral CT of the abdomen and pelvis was performed from lung bases to pubic symphysis. Intravenous contrast was administered during this examination. Portal venous imaging was obtained. Axial, coronal and sagittal multiplanar reformats were performed by the technologist on a separate workstation. Radiation Dose : 1. Abdomen/Pelvis: CTDIvol 23.4 mGy, DLP 1393 mGy*cm. CONTRAST: Type of contrast: Omnipaque Contrast injected: 100 ml FINDINGS: Lung Bases: No acute or significant lung base finding. Normal heart size. No pleural or pericardial effusion. Liver: The liver is normal in size. No focal lesions. Normal hepatic vascular enhancement. Gallbladder and Biliary Tree: Unremarkable Spleen: Splenomegaly measuring up to 14.3 cm. Pancreas: The pancreas is normal in appearance without focal lesions or abnormal enhancement. Adrenal Glands: Unremarkable Kidneys: Left renal nephrolithiasis without hydronephrosis. Bladder: Unremarkable Bowel: The stomach is grossly normal in appearance. Small bowel and colon are normal in caliber and distribution. The appendix is not visualized; however, no secondary findings of acute appendicitis identified. Ascites: Absent Lymphadenopathy: No mesenteric, retroperitoneal or periportal lymphadenopathy. Abdominal Wall and Mesentery: Left spigelian hernia is seen which contains fat and a nonobstructed segment of bowel. Vasculature: The infrarenal abdominal aorta is occluded. The bilateral iliac arteries are also occluded. Fem-fem bypass graft is noted. There is also a left axillary femoral bypass graft. The right SFA is possibly occluded. Pelvic Organs: Unremarkable Musculoskeletal: No aggressive focal bony lesions, acute fractures or dislocation. IMPRESSION: 1. Left spigelian hernia containing a nonobstructed segment of bowel. 2. 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 3. Occluded right SFA. 4. Fem-fem bypass graft and left axillary femoral bypass graft are noted. 5. Splenomegaly. 6. Left renal nephrolithiasis without hydronephrosis. CHEST RADIOGRAPH Indication: sob Technique: Single frontal view of the chest was obtained COMPARISON: None FINDINGS: Lines and Tubes: Right central venous catheter in satisfactory position. Lungs: Increased interstital prominence. This may represent pulmonary vascular congestion and/or viral pneumonia. Pleura: No effusion. No pneumothorax. Cardiomediastinal contours: Cardiomegaly. Bones: Unremarkable IMPRESSION: Increased pulmonary vascular congestion and/or viral pneumonia. 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, likely chronic, s/p Fem-fem bypass Thrombocytopenia Morbid Obesity, BMI 40.6 Marijuana use History of methamphetamines use History of tobacco use Discharge Disposition: AMA Discharge Instruct/Medications Scheduled Amlodipine Besylate (Amlodipine Besylate), 1 TAB PO DAILY, (Reported) Atorvastatin Calcium (Atorvastatin Calcium), 1 TAB PO DAILY, (Reported) Clonidine Hydrochloride (Clonidine Hcl), 1 TAB PO TID, (Reported) Dabigatran Etexilate Mesylate (Dabigatran Etexilate), 1 CAP PO BID, (Reported) Diclofenac Sodium (Topical) (Diclofenac Sodium), 1 APPLIC TOP UD, (Reported) Docusate Sodium (Colace), 1 CAP PO BID, (Reported) Famotidine (Famotidine), 1 TAB PO BID, (Reported) Gabapentin (Gabapentin), 1 TAB PO BID, (Reported) Lidocaine (Lidocaine), 2 PATCH TOP DAILY, (Reported) Omeprazole Magnesium (Eq Omeprazole Magnesium), 2 CAP PO DAILY, (Reported) Scheduled PRN Ipratropium-Albuterol (Ipratropium [place]/Albut), 3 ML INH QID PRN for SHORTNESS OF BREATH, (Reported) Discharge Statement: "Patient was advised to return to the ER or call 911 if any headaches, dizziness, shortness of breath, chest pain, abdominal pain, bleeding, fevers, or worsening of medical condition. Patient was counseled about treatment plan, medications, possible side effects, patientverbalized understanding. All questions were answered to the best of my ability. This discharge took greater then 30 minutes in planning, reviewing documentation, counseling the patient, and discussing with other team members." ASSESSMENT ASSESSMENT Assessment Visit Coding STANDARD RES Billing Provider: SURI WEBBER MD Date of Service if different f: Feb 24, 2025 Common Visit Codes: 88707-BWW/OBS DISCH DAY >30min DENAE TORRES RESIDENT Feb 24, 2025 15:37 SURI WEBBER MD Feb 25, 2025 15:22
== END 2025-02-24 07:55 | disposition left against medical advice (07) | DRG 393 ==
LOC: ER 10:05 → OVERFLOW 19:31 → WEST WING 02-23 03:12
PROVIDERS: ADMIT Student in an Organized Health Care Education/Training Program; ATTEND Student in an Organized Health Care Education/Training Program
DX: K43.9 Ventral hernia without obstruction or gangrene (principal); J96.00 Acute respiratory failure, unspecified whether with hypoxia or hypercapnia; I50.22 Chronic systolic (congestive) heart failure; D69.6 Thrombocytopenia, unspecified; Z68.41 Body mass index [BMI] 40.0-44.9, adult; I11.0 Hypertensive heart disease with heart failure; J44.9 Chronic obstructive pulmonary disease, unspecified; Z53.29 Procedure and treatment not carried out because of patient's decision for other reasons; F12.90 Cannabis use, unspecified, uncomplicated; E66.01 Morbid (severe) obesity due to excess calories; Z85.038 Personal history of other malignant neoplasm of large intestine; Z79.899 Other long term (current) drug therapy
CPT/HCPCS: 36415; 71045; 74177; 80048; 80053; 80307; 81001; 83036; 83605; 83690; 84443; 85025; 85610; 85730; 86850; 86900; 86901; 94640; G0378; J2470